=== PATIENT | female | born 1960 | race African-American/Black ===

== ENCOUNTER 2019-10-13 18:55 | Inpatient (IN) | payer SELFPAY ==
[~2019-10-13] VITALS: Ht 170.2 cm; Wt 48.1 kg
[2019-10-13] MEDS ORDERED: LEVETIRACETAM 500MG PREMIX 100 ML IV ONE (20:45)
[2019-10-13] MEDS ORDERED: DEXAMETHASONE 10 MG/ML VIAL IV ONE (20:45)
[2019-10-13] MEDS ORDERED: HYDRALAZINE 20MG/ML VIAL IV ONE (21:15)
[2019-10-13] MEDS ORDERED: MANNITOL 12.5G (25%) VIAL 50ML IV ONE ×2 (21:30)
[2019-10-13] MEDS ORDERED: IOHEXOL-350 100 ML BOTTLE ONE (21:34)
[2019-10-13 21:41] LABS: BASOPHILS % 0.7 % (0.0-2.0); HEMATOCRIT. 38.9 % (36.0-48.0); HEMOGLOBIN. 12.9 g/dL (12.0-16.0); LYMPHOCYTES % 21.9 % (20.0-50.0); MEAN CORPUSCULAR HEMOGLOBIN 30.6 pg (28.0-32.0); MEAN CORPUSCULAR VOLUME 91.8 fL (81.0-99.0); MEAN PLATELET VOLUME 10.4 fl (7.4-10.4); MONOCYTES % 11.2 % (2.0-8.0); NEUTROPHILS % 61.2 % (40.0-76.0); PLATELET 177 x1000/uL (130-400); RED BLOOD CELL COUNT 4.23 mill/uL (4.2-5.4); RED CELL DISTRIBUTION WIDTH 13.5 % (11.6-14.6)
[2019-10-13 21:46] LABS: CHLORIDE 111 mEq/L (98-107)
[2019-10-13 21:50] LABS: ETHANOL BLOOD < 10 mg/dL
[2019-10-13 21:53] LABS: LDL CHOLESTEROL 139 mg/dL (5-100)
[2019-10-13 21:57] LABS: CREATINE KINASE MB FRACTION 7.1 ng/mL (0.5-3.6); D-DIMER 4.26 mg/L FEU (<0.50); INR 1.2; PARTIAL THROMBOPLASTIN TIME 29.4 sec (23.4-31.0); PROTHROMBIN TIME 11.8 sec (9.6-11.0)
[2019-10-13 22:06] LABS: CREATINE KINASE 1495 IU/L (26-192)
[2019-10-13] MEDS ORDERED: FUROSEMIDE 40MG/4ML VIAL IVP ONE (22:15)
[2019-10-13] MEDS ORDERED: NICARDIPINE 100 MG in SODIUM CHLORIDE 0.9% 60 ML IV PRN (23:00)
[2019-10-13] MEDS ORDERED: MORPHINE SULFATE 2 MG/ML CPJ (NOT FOR IM USE) IV PRN ×2 (23:00→23:45)
[2019-10-13] MEDS: NICARDIPINE 40MG/200ML PREMIX 200 ML IV PRN (23:11)
[2019-10-13] MEDS ORDERED: HYDROCODONE/ACETAMINOPHEN 5/325MG TABLET PO PRN (23:45)
[2019-10-13] MEDS ORDERED: LORAZEPAM 2MG/ML CPJ IV PRN (23:45)
[2019-10-13] MEDS ORDERED: ONDANSETRON HCL 4MG/2ML INJ IV PRN (23:45)
[2019-10-14] VITALS (45 sets, daily range): BP systolic 107–147; BP diastolic 51–93
[2019-10-14] MEDS: DEXAMETHASONE 4MG/ML 1ML VIAL IV SCH ×5 (00:36→23:23)
[2019-10-14] MEDS: DEXT 5%/LACTATED RINGERS 1,000 ML IV SCH ×2 (02:23→20:10)
[2019-10-14] MEDS: ENOXAPARIN 40MG/0.4ML SYR SUBCUT SCH ×2 (02:26→03:05)
[2019-10-14] MEDS: MULTIVITAMINS,THER W-MINERALS TABLET PO SCH (03:02)
[2019-10-14] MEDS ORDERED: FUROSEMIDE 20MG/2ML VIAL IVP NR (06:15)
[2019-10-14 07:06] LABS: CREATINE KINASE MB FRACTION 5.8 ng/mL (0.5-3.6)
[2019-10-14] MEDS: NICARDIPINE 40MG/200ML PREMIX 200 ML IV PRN (07:08)
[2019-10-14] MEDS ORDERED: LEVETIRACETAM 500MG PREMIX 100 ML IV SCH ×2 (07:15→18:00)
[2019-10-14 08:05] LABS: CLARITY URINE CLOUDY (CLEAR); COLOR URINE YELLOW (YELLOW); KETONES URINE TRACE (NEGATIVE); LEUKOCYTE ESTERASE URINE 1+ (NEGATIVE); NITRITE URINE NEGATIVE (NEGATIVE); OCCULT BLOOD URINE TRACE (NEGATIVE); PROTEIN URINE NEGATIVE (NEGATIVE); SPECIFIC GRAVITY URINE 1.022 (1.005-1.030); UROBILINOGEN URINE 0.2 E.U./dL (0.2-1.0)
[2019-10-14 08:42] LABS: *AMPHETAMINES SCREEN URINE NEGATIVE (NEGATIVE)
[2019-10-14 08:43] LABS: *BARBITURATES SCREEN URINE NEGATIVE (NEGATIVE); *BENZODIAZEPINES SCREEN URINE NEGATIVE (NEGATIVE); *COCAINE SCREEN URINE NEGATIVE (NEGATIVE); METHADONE URINE SCREEN NEGATIVE (NEGATIVE); OPIATES URINE SCREEN NEGATIVE (NEGATIVE)
[2019-10-14 08:44] LABS: CANNABINOID URINE SCREEN NEGATIVE (NEGATIVE); PHENCYCLIDINE URINE SCREEN NEGATIVE (NEGATIVE)
[2019-10-14] MEDS ORDERED: ASPIRIN 81MG EC TABLET PO SCH (09:00)
[2019-10-14] MEDS ORDERED: IPRATROPIUM/ALBUTEROL 0.5-3(2.5)MG/3ML NEB HHN PRN (13:30)
[2019-10-14] MEDS ORDERED: BENZONATATE 100MG CAPSULE PO PRN (13:30)
[2019-10-14] MEDS ORDERED: CEFTRIAXONE SODIUM 1 G/VIAL IM SCH (13:45)
[2019-10-14] MEDS ORDERED: DEXT 5%/0.45% NACL 1000ML 1,000 ML IV SCH (14:00)
[2019-10-14] MEDS: NITROPRUSSIDE 50 MG in SODIUM CHLORIDE 0.9% 250 ML IV PRN (16:48)
[2019-10-14 17:16] LABS: BASOPHILS % 0.2 % (0.0-2.0); EOSINOPHILS % 0.1 % (0.0-5.0); HEMATOCRIT. 41.4 % (36.0-48.0); HEMOGLOBIN. 13.7 g/dL (12.0-16.0); LYMPHOCYTES % 7.8 % (20.0-50.0); MEAN CORPUSCULAR HEMOGLOBIN 30.6 pg (28.0-32.0); MEAN CORPUSCULAR VOLUME 92.2 fL (81.0-99.0); MEAN PLATELET VOLUME 10.1 fl (7.4-10.4); MONOCYTES % 2.1 % (2.0-8.0); NEUTROPHILS % 89.8 % (40.0-76.0); PLATELET 211 x1000/uL (130-400); RED BLOOD CELL COUNT 4.49 mill/uL (4.2-5.4); RED CELL DISTRIBUTION WIDTH 13.6 % (11.6-14.6)
[2019-10-14 17:43] LABS: CREATINE KINASE MB FRACTION 6.2 ng/mL (0.5-3.6)
[2019-10-14] MEDS: PANTOPRAZOLE SODIUM 40 MG/VIAL IV SCH (18:50)
[2019-10-14] MEDS ORDERED: DEXTROSE 50% WATER 50ML SYRINGE IV PRN (19:30)
[2019-10-14] MEDS: CEFTRIAXONE 1 G PREMIX 50 ML IV SCH (19:42)
[2019-10-14] MEDS: BLOOD SUGAR DIAGNOSTIC STRIP TEST SCH (21:00)
[2019-10-14] MEDS: INSULIN LISPRO 100 UNITS/ML SUBCUT SCH (21:01)
[2019-10-14] MEDS: LEVETIRACETAM 500MG in SODIUM CHLORIDE 0.9% 100ML IV SCH (21:27)
[2019-10-15] VITALS (99 sets, daily range): BP systolic 103–170; BP diastolic 56–101
[2019-10-15 05:51] LABS: HEMATOCRIT. 37.5 % (36.0-48.0); HEMOGLOBIN. 12.3 g/dL (12.0-16.0); MEAN CORPUSCULAR HEMOGLOBIN 30.2 pg (28.0-32.0); MEAN CORPUSCULAR VOLUME 92.2 fL (81.0-99.0); MEAN PLATELET VOLUME 10.7 fl (7.4-10.4); PLATELET 217 x1000/uL (130-400); RED BLOOD CELL COUNT 4.06 mill/uL (4.2-5.4); RED CELL DISTRIBUTION WIDTH 13.3 % (11.6-14.6)
[2019-10-15 06:08] LABS: PHOSPHORUS 3.7 mg/dL (2.5-4.9)
[2019-10-15] MEDS: DEXAMETHASONE 4MG/ML 1ML VIAL IV SCH ×4 (06:08→23:52)
[2019-10-15] MEDS: BLOOD SUGAR DIAGNOSTIC STRIP TEST SCH ×4 (06:08→21:00)
[2019-10-15] MEDS: INSULIN LISPRO 100 UNITS/ML SUBCUT SCH ×4 (06:09→21:47)
[2019-10-15] MEDS ORDERED: ASPI-1393 MT (07:32)
[2019-10-15] MEDS ORDERED: CARV6.2548 MT (07:34)
[2019-10-15] MEDS ORDERED: METF-416 MT (07:36)
[2019-10-15] MEDS ORDERED: BUME1TAB33 MT (07:38)
[2019-10-15 08:19] LABS: PLATELET ESTIMATE NORMAL
[2019-10-15] MEDS: PANTOPRAZOLE SODIUM 40 MG/VIAL IV SCH (09:04)
[2019-10-15] MEDS: MULTIVITAMINS,THER W-MINERALS TABLET PO SCH (09:04)
[2019-10-15] MEDS: LEVETIRACETAM 500MG in SODIUM CHLORIDE 0.9% 100ML IV SCH ×2 (09:04→21:35)
[2019-10-15] MEDS ORDERED: CARV12.545 MT (13:03)
[2019-10-15] MEDS ORDERED: BENA40TA9 MT (13:34)
[2019-10-15] MEDS ORDERED: ISOS10TA2 MT (13:39)
[2019-10-15] MEDS: DEXT 5%/LACTATED RINGERS 1,000 ML IV SCH (18:34)
[2019-10-15] MEDS: CEFTRIAXONE 1 G PREMIX 50 ML IV SCH (20:46)
[2019-10-15] MEDS: NITROPRUSSIDE 50 MG in SODIUM CHLORIDE 0.9% 250 ML IV PRN (21:23)
[2019-10-15] MEDS: ATORVASTATIN CALCIUM 10MG TABLET PO SCH (21:35)
[2019-10-16] VITALS (96 sets, daily range): BP systolic 103–181; BP diastolic 52–99
[2019-10-16] MEDS: DEXAMETHASONE 4MG/ML 1ML VIAL IV SCH ×4 (06:22→23:57)
[2019-10-16 06:23] LABS: HEMOGLOBIN. 11.7 g/dL (12.0-16.0); MEAN CORPUSCULAR HEMOGLOBIN 29.9 pg (28.0-32.0); MEAN PLATELET VOLUME 10.9 fl (7.4-10.4); PLATELET 191 x1000/uL (130-400); RED BLOOD CELL COUNT 3.91 mill/uL (4.2-5.4); RED CELL DISTRIBUTION WIDTH 13.7 % (11.6-14.6)
[2019-10-16] MEDS: NITROPRUSSIDE 50 MG in SODIUM CHLORIDE 0.9% 250 ML IV PRN ×2 (06:23→17:09)
[2019-10-16] MEDS: BLOOD SUGAR DIAGNOSTIC STRIP TEST SCH ×4 (06:24→21:04)
[2019-10-16] MEDS: INSULIN LISPRO 100 UNITS/ML SUBCUT SCH ×4 (06:24→21:18)
[2019-10-16] MEDS ORDERED: CARVEDILOL 12.5MG TABLET PO SCH (09:00)
[2019-10-16] MEDS ORDERED: BUMETANIDE 1MG TABLET PO SCH (09:00)
[2019-10-16] MEDS: LEVETIRACETAM 500MG in SODIUM CHLORIDE 0.9% 100ML IV SCH ×2 (09:47→21:17)
[2019-10-16] MEDS: MULTIVITAMINS,THER W-MINERALS TABLET PO SCH (09:48)
[2019-10-16] MEDS: CLONIDINE 0.1MG TABLET PO PRN ×2 (09:48→17:08)
[2019-10-16] MEDS: BENAZEPRIL 10MG TABLET PO SCH (09:49)
[2019-10-16] MEDS: ISOSORBIDE DINITRATE 10MG TABLET PO SCH ×2 (13:03→17:04)
[2019-10-16] MEDS ORDERED: CARV25TA47 MT (16:10)
[2019-10-16] MEDS ORDERED: SPIR25TA6 MT (16:11)
[2019-10-16] MEDS: DEXT 5%/LACTATED RINGERS 1,000 ML IV SCH (17:03)
[2019-10-16] MEDS: METFORMIN HCL 500MG TABLET PO SCH (17:04)
[2019-10-16] MEDS: SPIRONOLACTONE 25MG TABLET PO SCH (17:04)
[2019-10-16] MEDS: CLONIDINE 0.1MG TABLET PO SCH (17:05)
[2019-10-16 18:25] LABS: PLATELET ESTIMATE NORMAL
[2019-10-16] MEDS: CEFTRIAXONE 1 G PREMIX 50 ML IV SCH (20:23)
[2019-10-16] MEDS: ATORVASTATIN CALCIUM 10MG TABLET PO SCH (21:16)
[2019-10-16] MEDS: CARVEDILOL 12.5MG TABLET PO SCH (21:17)
[2019-10-17] VITALS (103 sets, daily range): BP systolic 102–172; BP diastolic 50–105
[2019-10-17] MEDS: BLOOD SUGAR DIAGNOSTIC STRIP TEST SCH ×4 (06:10→20:41)
[2019-10-17] MEDS: DEXAMETHASONE 4MG/ML 1ML VIAL IV SCH (06:10)
[2019-10-17] MEDS: INSULIN LISPRO 100 UNITS/ML SUBCUT SCH ×4 (06:11→20:41)
[2019-10-17] MEDS: METFORMIN HCL 500MG TABLET PO SCH ×2 (06:11→17:39)
[2019-10-17] MEDS: SPIRONOLACTONE 25MG TABLET PO SCH (08:26)
[2019-10-17] MEDS: MULTIVITAMINS,THER W-MINERALS TABLET PO SCH (08:27)
[2019-10-17] MEDS: ISOSORBIDE DINITRATE 10MG TABLET PO SCH ×3 (08:27→17:39)
[2019-10-17] MEDS: BENAZEPRIL 10MG TABLET PO SCH (08:27)
[2019-10-17] MEDS: CARVEDILOL 12.5MG TABLET PO SCH ×2 (08:28→20:41)
[2019-10-17] MEDS: LEVETIRACETAM 500MG in SODIUM CHLORIDE 0.9% 100ML IV SCH ×2 (08:32→20:40)
[2019-10-17] MEDS: CLONIDINE 0.1MG TABLET PO SCH ×3 (09:23→17:39)
[2019-10-17] MEDS: FUROSEMIDE 40MG TABLET PO SCH (13:47)
[2019-10-17] MEDS: NITROPRUSSIDE 50 MG in SODIUM CHLORIDE 0.9% 250 ML IV PRN (15:51)
[2019-10-17] MEDS: CLONIDINE 0.1MG TABLET PO PRN (15:51)
[2019-10-17] MEDS: CEFTRIAXONE 1 G PREMIX 50 ML IV SCH (18:49)
[2019-10-17] MEDS: ATORVASTATIN CALCIUM 10MG TABLET PO SCH (20:41)
[2019-10-18] VITALS (112 sets, daily range): BP systolic 76–176; BP diastolic 30–116
[2019-10-18] MEDS: NITROPRUSSIDE 50 MG in SODIUM CHLORIDE 0.9% 250 ML IV PRN (05:36)
[2019-10-18] MEDS: BLOOD SUGAR DIAGNOSTIC STRIP TEST SCH ×4 (05:45→21:39)
[2019-10-18] MEDS: INSULIN LISPRO 100 UNITS/ML SUBCUT SCH ×4 (06:14→21:00)
[2019-10-18] MEDS: METFORMIN HCL 500MG TABLET PO SCH ×2 (06:25→17:33)
[2019-10-18] MEDS: LEVETIRACETAM 500MG in SODIUM CHLORIDE 0.9% 100ML IV SCH ×2 (08:16→21:36)
[2019-10-18] MEDS: SPIRONOLACTONE 25MG TABLET PO SCH (08:17)
[2019-10-18] MEDS: CLONIDINE 0.1MG TABLET PO SCH (08:18)
[2019-10-18] MEDS: CARVEDILOL 12.5MG TABLET PO SCH ×2 (08:18→21:37)
[2019-10-18] MEDS: DEXAMETHASONE 4MG TABLET PO SCH (08:18)
[2019-10-18] MEDS: FUROSEMIDE 40MG TABLET PO SCH (08:19)
[2019-10-18] MEDS: MULTIVITAMINS,THER W-MINERALS TABLET PO SCH (08:19)
[2019-10-18] MEDS: ISOSORBIDE DINITRATE 10MG TABLET PO SCH ×3 (08:20→17:34)
[2019-10-18] MEDS: BENAZEPRIL 10MG TABLET PO SCH (08:58)
[2019-10-18 13:21] LABS: BASOPHILS % 0.3 % (0.0-2.0); EOSINOPHILS % 0.4 % (0.0-5.0); HEMATOCRIT. 36.9 % (36.0-48.0); HEMOGLOBIN. 12.2 g/dL (12.0-16.0); LYMPHOCYTES % 13.4 % (20.0-50.0); MEAN CORPUSCULAR HEMOGLOBIN 30.3 pg (28.0-32.0); MEAN CORPUSCULAR VOLUME 91.6 fL (81.0-99.0); MEAN PLATELET VOLUME 10.3 fl (7.4-10.4); MONOCYTES % 5.3 % (2.0-8.0); NEUTROPHILS % 80.6 % (40.0-76.0); PLATELET 156 x1000/uL (130-400); RED BLOOD CELL COUNT 4.03 mill/uL (4.2-5.4)
[2019-10-18] MEDS: HYDRALAZINE HCL 100MG TABLET PO SCH ×2 (14:43→21:38)
[2019-10-18] MEDS: MINOXIDIL 2.5MG TABLET PO SCH (16:11)
[2019-10-18] MEDS: CEFTRIAXONE 1 G PREMIX 50 ML IV SCH (18:52)
[2019-10-18] MEDS: ATORVASTATIN CALCIUM 10MG TABLET PO SCH (21:37)
[2019-10-18] MEDS: AMLODIPINE 5MG TABLET PO SCH (21:39)
[2019-10-19] VITALS (65 sets, daily range): BP systolic 92–165; BP diastolic 38–85
[2019-10-19 06:11] LABS: CHLORIDE 106 mEq/L (98-107); EOSINOPHILS % 1.1 % (0.0-5.0); HEMATOCRIT. 36.2 % (36.0-48.0); HEMOGLOBIN. 12.1 g/dL (12.0-16.0); LYMPHOCYTES % 23.5 % (20.0-50.0); MEAN CORPUSCULAR HEMOGLOBIN 30.3 pg (28.0-32.0); MEAN CORPUSCULAR VOLUME 90.8 fL (81.0-99.0); MEAN PLATELET VOLUME 10.8 fl (7.4-10.4); MONOCYTES % 8.3 % (2.0-8.0); NEUTROPHILS % 67.1 % (40.0-76.0); PLATELET 141 x1000/uL (130-400); RED BLOOD CELL COUNT 3.98 mill/uL (4.2-5.4); RED CELL DISTRIBUTION WIDTH 13.2 % (11.6-14.6)
[2019-10-19] MEDS: METFORMIN HCL 500MG TABLET PO SCH ×2 (06:35→18:25)
[2019-10-19] MEDS: BLOOD SUGAR DIAGNOSTIC STRIP TEST SCH ×5 (06:36→21:00)
[2019-10-19] MEDS: HYDRALAZINE HCL 100MG TABLET PO SCH ×3 (06:36→21:11)
[2019-10-19] MEDS: INSULIN LISPRO 100 UNITS/ML SUBCUT SCH ×4 (06:37→22:26)
[2019-10-19] MEDS: MULTIVITAMINS,THER W-MINERALS TABLET PO SCH (08:53)
[2019-10-19] MEDS: DEXAMETHASONE 4MG TABLET PO SCH (08:53)
[2019-10-19] MEDS: SPIRONOLACTONE 25MG TABLET PO SCH (08:53)
[2019-10-19] MEDS: ISOSORBIDE DINITRATE 10MG TABLET PO SCH ×3 (08:54→17:00)
[2019-10-19] MEDS: MINOXIDIL 2.5MG TABLET PO SCH ×2 (08:54→17:00)
[2019-10-19] MEDS: AMLODIPINE 5MG TABLET PO SCH ×2 (08:54→21:00)
[2019-10-19] MEDS: BENAZEPRIL 10MG TABLET PO SCH (09:00)
[2019-10-19] MEDS: CARVEDILOL 12.5MG TABLET PO SCH ×2 (09:00→21:00)
[2019-10-19] MEDS ORDERED: KEPP500 MT (09:05)
[2019-10-19] MEDS ORDERED: MINO2.5T19 PO (09:05)
[2019-10-19] MEDS ORDERED: HYDR100T26 PO (09:05)
[2019-10-19] MEDS: LEVETIRACETAM 500MG in SODIUM CHLORIDE 0.9% 100ML IV SCH (10:05)
[2019-10-19 12:06] LABS: PHOSPHORUS 2.1 mg/dL (2.5-4.9)
[2019-10-19] MEDS: ATORVASTATIN CALCIUM 10MG TABLET PO SCH (21:10)
[2019-10-19] MEDS: LEVETIRACETAM 500MG PREMIX 100 ML IV SCH (23:19)
[2019-10-20] VITALS: BP 113/66
[2019-10-20] MEDS: CEFTRIAXONE 1 G PREMIX 50 ML IV SCH ×2 (00:32→18:45)
[2019-10-20 04:00] VITALS: BP 163/85
[2019-10-20] MEDS: CLONIDINE 0.1MG TABLET PO PRN (06:27)
[2019-10-20] MEDS: HYDRALAZINE HCL 100MG TABLET PO SCH ×3 (06:27→22:00)
[2019-10-20] MEDS: BLOOD SUGAR DIAGNOSTIC STRIP TEST SCH ×4 (06:31→21:07)
[2019-10-20 07:14] LABS: BASOPHILS % 0.1 % (0.0-2.0); EOSINOPHILS % 0.7 % (0.0-5.0); HEMATOCRIT. 36.5 % (36.0-48.0); HEMOGLOBIN. 12.2 g/dL (12.0-16.0); LYMPHOCYTES % 14.8 % (20.0-50.0); MEAN CORPUSCULAR HEMOGLOBIN 30.2 pg (28.0-32.0); MEAN CORPUSCULAR VOLUME 89.9 fL (81.0-99.0); MONOCYTES % 6.5 % (2.0-8.0); NEUTROPHILS % 77.9 % (40.0-76.0); PLATELET 152 x1000/uL (130-400); RED BLOOD CELL COUNT 4.06 mill/uL (4.2-5.4); RED CELL DISTRIBUTION WIDTH 13.1 % (11.6-14.6)
[2019-10-20 08:00] VITALS: BP 133/73
[2019-10-20] MEDS: INSULIN LISPRO 100 UNITS/ML SUBCUT SCH ×4 (08:10→21:00)
[2019-10-20] MEDS: SPIRONOLACTONE 25MG TABLET PO SCH (08:41)
[2019-10-20] MEDS: CARVEDILOL 12.5MG TABLET PO SCH ×2 (08:42→21:00)
[2019-10-20] MEDS: METFORMIN HCL 500MG TABLET PO SCH ×2 (08:42→17:39)
[2019-10-20] MEDS: MULTIVITAMINS,THER W-MINERALS TABLET PO SCH (08:42)
[2019-10-20] MEDS: AMLODIPINE 5MG TABLET PO SCH ×2 (08:42→21:00)
[2019-10-20] MEDS: MINOXIDIL 2.5MG TABLET PO SCH ×2 (08:43→17:00)
[2019-10-20] MEDS: BENAZEPRIL 10MG TABLET PO SCH (08:43)
[2019-10-20] MEDS: DEXAMETHASONE 4MG TABLET PO SCH (08:48)
[2019-10-20] MEDS: ISOSORBIDE DINITRATE 10MG TABLET PO SCH ×2 (08:49→13:43)
[2019-10-20 12:00] VITALS: BP 133/64
[2019-10-20] MEDS: LEVETIRACETAM 500MG PREMIX 100 ML IV SCH ×2 (13:43→21:04)
[2019-10-20 16:00] VITALS: BP 99/63
[2019-10-20 20:00] VITALS: BP 95/52
[2019-10-20] MEDS: ATORVASTATIN CALCIUM 10MG TABLET PO SCH (21:04)
[2019-10-21] VITALS: BP 98/58
[2019-10-21 04:00] VITALS: BP 122/61
[2019-10-21] MEDS: HYDRALAZINE HCL 100MG TABLET PO SCH ×3 (06:02→22:00)
[2019-10-21] MEDS: BLOOD SUGAR DIAGNOSTIC STRIP TEST SCH ×4 (07:40→21:17)
[2019-10-21 08:00] VITALS: BP 118/70
[2019-10-21] MEDS: INSULIN LISPRO 100 UNITS/ML SUBCUT SCH ×4 (08:10→21:00)
[2019-10-21] MEDS: METFORMIN HCL 500MG TABLET PO SCH ×2 (08:32→17:12)
[2019-10-21] MEDS: LEVETIRACETAM 500MG PREMIX 100 ML IV SCH ×2 (08:32→21:17)
[2019-10-21] MEDS: AMLODIPINE 5MG TABLET PO SCH ×2 (08:33→21:17)
[2019-10-21] MEDS: SPIRONOLACTONE 25MG TABLET PO SCH (08:33)
[2019-10-21] MEDS: CARVEDILOL 12.5MG TABLET PO SCH ×2 (08:33→21:17)
[2019-10-21] MEDS: MINOXIDIL 2.5MG TABLET PO SCH ×2 (08:34→17:00)
[2019-10-21] MEDS: BENAZEPRIL 10MG TABLET PO SCH (08:34)
[2019-10-21 12:00] VITALS: BP 108/42
[2019-10-21 16:00] VITALS: BP 92/53
[2019-10-21] MEDS: MULTIVITAMINS,THER W-MINERALS TABLET PO SCH (17:12)
[2019-10-21 20:00] VITALS: BP 112/46
[2019-10-21] MEDS: CEFTRIAXONE 1 G PREMIX 50 ML IV SCH (21:17)
[2019-10-21] MEDS: ATORVASTATIN CALCIUM 10MG TABLET PO SCH (21:17)
[2019-10-22] VITALS: BP 124/78
[2019-10-22 04:00] VITALS: BP 120/70
[2019-10-22] MEDS: HYDRALAZINE HCL 100MG TABLET PO SCH ×3 (06:14→22:31)
[2019-10-22] MEDS: BLOOD SUGAR DIAGNOSTIC STRIP TEST SCH ×4 (07:45→20:54)
[2019-10-22] MEDS: INSULIN LISPRO 100 UNITS/ML SUBCUT SCH ×4 (07:45→21:00)
[2019-10-22 08:00] VITALS: BP 126/67
[2019-10-22] MEDS: CARVEDILOL 12.5MG TABLET PO SCH ×2 (09:07→20:52)
[2019-10-22] MEDS: AMLODIPINE 5MG TABLET PO SCH ×2 (09:07→20:54)
[2019-10-22] MEDS: METFORMIN HCL 500MG TABLET PO SCH ×2 (09:07→18:55)
[2019-10-22] MEDS: MINOXIDIL 2.5MG TABLET PO SCH ×2 (09:08→17:00)
[2019-10-22] MEDS: BENAZEPRIL 10MG TABLET PO SCH (09:08)
[2019-10-22] MEDS: MULTIVITAMINS,THER W-MINERALS TABLET PO SCH (09:08)
[2019-10-22] MEDS: SPIRONOLACTONE 25MG TABLET PO SCH (09:09)
[2019-10-22] MEDS: LEVETIRACETAM 500MG PREMIX 100 ML IV SCH ×2 (09:09→20:52)
[2019-10-22 12:00] VITALS: BP 121/44
[2019-10-22 16:00] VITALS: BP 93/49
[2019-10-22 16:22] LABS: BASOPHILS % 0.3 % (0.0-2.0); EOSINOPHILS % 4.8 % (0.0-5.0); HEMATOCRIT. 39.2 % (36.0-48.0); HEMOGLOBIN. 12.9 g/dL (12.0-16.0); LYMPHOCYTES % 14.4 % (20.0-50.0); MEAN CORPUSCULAR VOLUME 91.4 fL (81.0-99.0); MONOCYTES % 9.2 % (2.0-8.0); NEUTROPHILS % 71.3 % (40.0-76.0); PLATELET 145 x1000/uL (130-400); RED BLOOD CELL COUNT 4.29 mill/uL (4.2-5.4); RED CELL DISTRIBUTION WIDTH 13.2 % (11.6-14.6)
[2019-10-22 20:00] VITALS: BP 124/58
[2019-10-22] MEDS: MAGNESIUM OXIDE 400MG TABLET PO SCH (20:52)
[2019-10-22] MEDS: ATORVASTATIN CALCIUM 10MG TABLET PO SCH (20:54)
[2019-10-22] MEDS ORDERED: MAGNESIUM 2 G PREMIX 50 ML IV SCH (21:00)
[2019-10-23] VITALS: BP 128/73
[2019-10-23 04:00] VITALS: BP 133/75
[2019-10-23] MEDS: HYDRALAZINE HCL 100MG TABLET PO SCH ×3 (05:21→22:00)
[2019-10-23 06:28] LABS: BASOPHILS % 0.1 % (0.0-2.0); HEMATOCRIT. 36.8 % (36.0-48.0); HEMOGLOBIN. 12.4 g/dL (12.0-16.0); LYMPHOCYTES % 11.5 % (20.0-50.0); MEAN CORPUSCULAR HEMOGLOBIN 30.4 pg (28.0-32.0); MEAN CORPUSCULAR VOLUME 90.1 fL (81.0-99.0); MEAN PLATELET VOLUME 11.5 fl (7.4-10.4); MONOCYTES % 12.3 % (2.0-8.0); NEUTROPHILS % 72.1 % (40.0-76.0); PLATELET 123 x1000/uL (130-400); RED BLOOD CELL COUNT 4.08 mill/uL (4.2-5.4); RED CELL DISTRIBUTION WIDTH 13.3 % (11.6-14.6)
[2019-10-23 08:00] VITALS: BP 137/75
[2019-10-23] MEDS: INSULIN LISPRO 100 UNITS/ML SUBCUT SCH ×4 (08:10→21:00)
[2019-10-23] MEDS: BLOOD SUGAR DIAGNOSTIC STRIP TEST SCH ×4 (08:12→21:20)
[2019-10-23] MEDS: LEVETIRACETAM 500MG PREMIX 100 ML IV SCH ×2 (09:48→21:21)
[2019-10-23] MEDS: MAGNESIUM OXIDE 400MG TABLET PO SCH (09:49)
[2019-10-23] MEDS: AMLODIPINE 5MG TABLET PO SCH ×2 (09:49→21:19)
[2019-10-23] MEDS: MINOXIDIL 2.5MG TABLET PO SCH ×2 (09:49→17:00)
[2019-10-23] MEDS: BENAZEPRIL 10MG TABLET PO SCH (09:49)
[2019-10-23] MEDS: CARVEDILOL 12.5MG TABLET PO SCH ×2 (09:49→21:19)
[2019-10-23] MEDS: MULTIVITAMINS,THER W-MINERALS TABLET PO SCH (09:49)
[2019-10-23] MEDS: METFORMIN HCL 500MG TABLET PO SCH ×2 (09:49→18:19)
[2019-10-23] MEDS: FUROSEMIDE 40MG TABLET PO SCH (09:52)
[2019-10-23 12:00] VITALS: BP 196/52
[2019-10-23 16:00] VITALS: BP 100/58
[2019-10-23 20:00] VITALS: BP 118/67
[2019-10-23] MEDS: ATORVASTATIN CALCIUM 10MG TABLET PO SCH (21:19)
[2019-10-24] VITALS: BP 130/71
[2019-10-24 04:00] VITALS: BP 133/66
[2019-10-24] MEDS: HYDRALAZINE HCL 100MG TABLET PO SCH ×3 (06:06→21:24)
[2019-10-24 06:57] LABS: BASOPHILS % 0.2 % (0.0-2.0); HEMATOCRIT. 34.4 % (36.0-48.0); HEMOGLOBIN. 11.5 g/dL (12.0-16.0); LYMPHOCYTES % 12.3 % (20.0-50.0); MEAN CORPUSCULAR HEMOGLOBIN 30.3 pg (28.0-32.0); MEAN CORPUSCULAR VOLUME 90.5 fL (81.0-99.0); MEAN PLATELET VOLUME 10.9 fl (7.4-10.4); MONOCYTES % 13.9 % (2.0-8.0); NEUTROPHILS % 70.6 % (40.0-76.0); PLATELET 118 x1000/uL (130-400); RED CELL DISTRIBUTION WIDTH 13.3 % (11.6-14.6)
[2019-10-24 08:00] VITALS: BP 114/65
[2019-10-24] MEDS: INSULIN LISPRO 100 UNITS/ML SUBCUT SCH ×5 (08:10→21:00)
[2019-10-24] MEDS: METFORMIN HCL 500MG TABLET PO SCH ×2 (08:23→18:03)
[2019-10-24] MEDS: BLOOD SUGAR DIAGNOSTIC STRIP TEST SCH ×4 (08:25→21:22)
[2019-10-24] MEDS: LEVETIRACETAM 500MG PREMIX 100 ML IV SCH ×2 (09:20→21:23)
[2019-10-24] MEDS: FUROSEMIDE 40MG TABLET PO SCH (09:21)
[2019-10-24] MEDS: MINOXIDIL 2.5MG TABLET PO SCH ×2 (09:21→17:00)
[2019-10-24] MEDS: CARVEDILOL 12.5MG TABLET PO SCH ×2 (09:21→21:00)
[2019-10-24] MEDS: MAGNESIUM OXIDE 400MG TABLET PO SCH (09:21)
[2019-10-24] MEDS: BENAZEPRIL 10MG TABLET PO SCH (09:22)
[2019-10-24] MEDS: MULTIVITAMINS,THER W-MINERALS TABLET PO SCH (09:25)
[2019-10-24] MEDS: AMLODIPINE 5MG TABLET PO SCH ×2 (09:25→21:00)
[2019-10-24 12:00] VITALS: BP 95/60
[2019-10-24 16:00] VITALS: BP 94/53
[2019-10-24 20:00] VITALS: BP 109/54
[2019-10-24] MEDS: ATORVASTATIN CALCIUM 10MG TABLET PO SCH (21:23)
[2019-10-25 00:05] VITALS: BP 111/56
[2019-10-25 04:00] VITALS: BP 113/62
[2019-10-25] MEDS: HYDRALAZINE HCL 100MG TABLET PO SCH ×3 (05:44→21:08)
[2019-10-25 05:56] LABS: BASOPHILS % 0.5 % (0.0-2.0); EOSINOPHILS % 3.5 % (0.0-5.0); HEMATOCRIT. 34.7 % (36.0-48.0); HEMOGLOBIN. 11.7 g/dL (12.0-16.0); LYMPHOCYTES % 13.1 % (20.0-50.0); MEAN CORPUSCULAR HEMOGLOBIN 30.6 pg (28.0-32.0); MEAN CORPUSCULAR VOLUME 90.9 fL (81.0-99.0); MEAN PLATELET VOLUME 11.4 fl (7.4-10.4); MONOCYTES % 12.7 % (2.0-8.0); NEUTROPHILS % 70.2 % (40.0-76.0); PLATELET 124 x1000/uL (130-400); RED BLOOD CELL COUNT 3.82 mill/uL (4.2-5.4); RED CELL DISTRIBUTION WIDTH 13.4 % (11.6-14.6)
[2019-10-25] MEDS: BLOOD SUGAR DIAGNOSTIC STRIP TEST SCH ×4 (05:58→21:21)
[2019-10-25 08:00] VITALS: BP 110/57
[2019-10-25] MEDS: INSULIN LISPRO 100 UNITS/ML SUBCUT SCH ×4 (08:03→21:00)
[2019-10-25] MEDS: AMLODIPINE 5MG TABLET PO SCH ×2 (08:37→21:00)
[2019-10-25] MEDS: METFORMIN HCL 500MG TABLET PO SCH ×2 (08:38→18:50)
[2019-10-25] MEDS: BENAZEPRIL 10MG TABLET PO SCH (08:39)
[2019-10-25] MEDS: CARVEDILOL 12.5MG TABLET PO SCH ×2 (08:39→21:00)
[2019-10-25] MEDS: MINOXIDIL 2.5MG TABLET PO SCH (08:40)
[2019-10-25] MEDS: FUROSEMIDE 40MG TABLET PO SCH (08:41)
[2019-10-25] MEDS: MAGNESIUM OXIDE 400MG TABLET PO SCH (08:41)
[2019-10-25] MEDS: MULTIVITAMINS,THER W-MINERALS TABLET PO SCH (08:41)
[2019-10-25] MEDS ORDERED: LEVETIRACETAM 500 MG in SODIUM CHLORIDE 0.9% 100 ML IV SCH (09:45)
[2019-10-25 12:00] VITALS: BP 92/50
[2019-10-25 16:00] VITALS: BP 97/58
[2019-10-25 20:00] VITALS: BP 100/58
[2019-10-25] MEDS: LEVETIRACETAM 500MG PREMIX 100 ML IV SCH (21:20)
[2019-10-25] MEDS: ATORVASTATIN CALCIUM 10MG TABLET PO SCH (21:20)
[2019-10-26] VITALS: BP 120/63
[2019-10-26] MEDS: HYDRALAZINE HCL 100MG TABLET PO SCH ×2 (06:00→14:00)
[2019-10-26 08:00] VITALS: BP 116/67
[2019-10-26] MEDS: INSULIN LISPRO 100 UNITS/ML SUBCUT SCH ×3 (08:10→18:10)
[2019-10-26] MEDS: BLOOD SUGAR DIAGNOSTIC STRIP TEST SCH ×3 (08:34→18:29)
[2019-10-26] MEDS: BENAZEPRIL 10MG TABLET PO SCH (09:00)
[2019-10-26] MEDS: AMLODIPINE 5MG TABLET PO SCH (09:00)
[2019-10-26] MEDS: LEVETIRACETAM 500MG PREMIX 100 ML IV SCH (10:32)
[2019-10-26] MEDS: CARVEDILOL 12.5MG TABLET PO SCH (10:36)
[2019-10-26] MEDS: METFORMIN HCL 500MG TABLET PO SCH ×2 (10:37→18:42)
[2019-10-26] MEDS: MULTIVITAMINS,THER W-MINERALS TABLET PO SCH (10:39)
[2019-10-26] MEDS: FUROSEMIDE 40MG TABLET PO SCH (10:39)
[2019-10-26] MEDS: MAGNESIUM OXIDE 400MG TABLET PO SCH (10:39)
[2019-10-26 12:00] VITALS: BP 120/74
[2019-10-26 16:00] VITALS: BP 105/60
[2019-10-26 17:52] VITALS: BP 105/60
== END 2019-10-26 23:38 | DRG 44 ==
LOC: ER 18:55 → MICUNO 21:31 → EDBEDREQ 21:40 → EDBEDREQTM 21:40 → EDBEDREQSVC 21:40 → ENRESERV 10-14 12:41 → 7WST 10-19 16:53 → UNDODISIN 10-25 15:27
PROVIDERS: ADMIT Internal Medicine Nephrology; ATTEND Internal Medicine Nephrology
PROC: 30233R1 Transfusion of Nonautologous Platelets into Peripheral Vein, Percutaneous Approach (ICD-10-PCS; 2019-10-14)
PROC: 4A00X4Z Measurement of Central Nervous Electrical Activity, External Approach (ICD-10-PCS; principal; 2019-10-15)
DX: I61.8 Other nontraumatic intracerebral hemorrhage (principal); N17.0 Acute kidney failure with tubular necrosis; G93.41 Metabolic encephalopathy; I50.23 Acute on chronic systolic (congestive) heart failure; E44.0 Moderate protein-calorie malnutrition; E83.42 Hypomagnesemia; I07.1 Rheumatic tricuspid insufficiency; E11.22 Type 2 diabetes mellitus with diabetic chronic kidney disease; N18.9 Chronic kidney disease, unspecified; I13.0 Hypertensive heart and chronic kidney disease with heart failure and stage 1 through stage 4 chronic kidney disease, or unspecified chronic kidney disease; E87.5 Hyperkalemia; E87.8 Other disorders of electrolyte and fluid balance, not elsewhere classified; E66.09 Other obesity due to excess calories; E78.5 Hyperlipidemia, unspecified; I27.20 Pulmonary hypertension, unspecified; I42.0 Dilated cardiomyopathy; I49.3 Ventricular premature depolarization; G81.91 Hemiplegia, unspecified affecting right dominant side; M62.82 Rhabdomyolysis; N39.0 Urinary tract infection, site not specified; Z79.899 Other long term (current) drug therapy; Z82.3 Family history of stroke
CPT/HCPCS: 36415; 70496; 70551; 71045; 80048; 80305; 80320; 81003; 82550; 82553; 82962; 83721; 83735; 83880; 84100; 84443; 84484; 85379; 86850; 86900; 92523; 92610; 93005; 93306; 93880; 93970; 96365; 97112; 97163; 97167; 97530; 99291; A6261; C9113; J0360; J0696; J1100; J1650; J1815; J1940; J1953; J2150; J3475; J3490; J7050; J8540; P9034; Q9967; A4315; G0480